=== PATIENT | male | born 1940 | race Caucasian/White ===

== ENCOUNTER 2020-12-29 13:16 | Outpatient (CLI) | payer MEDICARE, OTHER ==
[2020-12-29] MEDS ORDERED: ALBUTEROL 1 PUFF INH STA (14:54)
== END 2020-12-29 13:17 | disposition home or self-care (01) ==
LOC: RT 13:16
PROVIDERS: ATTEND Internal Medicine
DX: R06.09 Other forms of dyspnea (principal)
CPT/HCPCS: 94060

== ENCOUNTER 2020-12-31 12:16 | Outpatient (CLI) | payer MEDICARE, OTHER ==
--- NOTE | 2020-12-31 17:13 | XRAY Report ---
PROCEDURE: Chest 2 View X-Ray INDICATIONS: DYSPNEA TECHNIQUE: 2 view(s) of the chest. COMPARISON: None. FINDINGS: Surgical changes and devices: None. Lungs and pleura: Diffuse interstitial prominence. Patchy bibasilar opacities. Small bilateral pleura l effusions. Fluid is seen in the right minor fissure. No pneumothorax. Mediastinum: Mediastinal contours are normal. Heart size is borderline enlarged. Bones and chest wall: No suspicious bony abnormalities. Soft tissues appear unremarkable. IMPRESSION: Cardiomegaly with findings suggestive of pulmonary edema/CHF. Concurrent infectious/infl ammatory process not excluded if clinically appropriate. Recommend follow-up chest radiograph 4-6 weeks after treatment to document resolution of findings. Reviewed by: Alphonso Pressley MD on 12/31/2020 4:12 PM KELLY Approved by: Alphonso Pressley MD on 12/31/2020 4:12 PM KELLY Station ID: [id number]
== END 2020-12-31 12:17 | disposition home or self-care (01) ==
LOC: DI 12:16
PROVIDERS: ATTEND Internal Medicine
DX: R06.09 Other forms of dyspnea (principal); I51.7 Cardiomegaly